=== PATIENT | female | born 1945 ===

== ENCOUNTER 2023-03-29 07:28 | Outpatient (CLI) | payer OTHER ==
[~2023-03-29 07:28] MED LIST: ATORVASTATIN CA10 MG PO; COZAAR50 MG PO; PERCOCET 5-3251 EACH PO; ZEGERID 40 MG1 EACH PO
== END 2023-03-29 07:40 | disposition home or self-care (01) ==
LOC: TOM 07:28
DX: R19.5 Other fecal abnormalities (principal); K62.5 Hemorrhage of anus and rectum